=== PATIENT | female | born 1960 | race Caucasian/White ===

== ENCOUNTER 2018-05-13 10:15 | Emergency (ER) | payer SELFPAY ==
[2018-05-13 10:19] VITALS: BP 161/99; PULSE 108; RESP 15; TEMP 36.4; O2SAT 98; BMI 34.2
--- NOTE | 2018-05-13 20:20 | ED.NECK ---
HPI - Neck Pain/Injury General Chief Complaint: Neck Pain/Injury Stated Complaint: 'HURT NECK' Related Data Home Medications Medication Instructions Recorded Confirmed zh-bhm-ptich acid-lutein [Centrum 1 tab PO Q DAY #0 05/16/12 05/13/18 Silver] glucosamine sulfate-msm 1,500 mg PO BID #0 03/29/17 05/13/18 Glucose: Test Strips 0 str MISCELLANEOUS SEE 05/13/18 05/13/18 INSTRUCTIONS Syringes 1 syr MISCELLANEOUS Q DAY 05/13/18 05/13/18 aspirin 81 mg PO DAILY 05/13/18 05/13/18 insulin aspart U-100 [Novolog 1 dose SQ DIRECTED 05/13/18 05/13/18 U-100 Insulin aspart] metoclopramide HCl 10 mg PO QAM 05/13/18 05/13/18 ukpbmcef-tqj-VG-lycopen-lutein 1 tab PO DAILY 05/13/18 05/13/18 [Centrum Silver] penicillin V potassium 500 mg PO QID 05/13/18 05/13/18 Previous Rx's Medication Instructions Recorded quetiapine [Seroquel] 200 mg PO HS #30 tab 06/03/17 omeprazole 40 mg OR BID #180 cap 09/09/17 venlafaxine ER 75 mg 75 mg PO QDAY #90 cap 01/21/18 capsule,extended release 24 hr insulin glargine (U-100) 100 See Label Instructions SUBCUT QDAY 02/27/18 unit/mL subcutaneous solution #30 day ropinirole 2 mg tablet 2 mg PO HS #30 tab 03/31/18 lisinopril 10 mg tablet 10 mg PO QDAY #30 tab 04/08/18 trazodone 150 mg tablet 150 mg PO BEDTIME #90 tab 04/17/18 metformin 1,000 mg tablet 1,000 mg PO BIDCC #60 tab 04/21/18 Allergies Allergy/AdvReac Type Severity Reaction Status Date / Time No Known Drug Allergies Allergy Verified 05/13/18 10:19 PFSH Medical History Bipolar disorder (Chronic) Chronic headaches (Chronic) Depression (Chronic) Diabetes mellitus (Chronic 1991) GERD (gastroesophageal reflux disease) (Chronic) Hypertension (Chronic) Leg pain (Chronic) Menopause (Chronic) RLS (restless legs syndrome) (Chronic) Sliding hiatal hernia (Chronic) Surgical History Anesthesia (Resolved) History of right knee surgery (Resolved) History of tonsillectomy and adenoidectomy (Resolved) Family History Brother Age: 54 Type 1 diabetes Father Diabetes mellitus Heart disease Mother Age: 60 Diabetes mellitus Social History Smoking Status: Current every day smoker Exam Initial Vital Signs Initial Vital Signs: Vital Signs Temperature 97.6 F 05/13/18 10:19 Pulse Rate 108 H 05/13/18 10:19 Respiratory Rate 15 05/13/18 10:19 Blood Pressure 161/99 H 05/13/18 10:19 Pulse Oximetry 98 05/13/18 10:19 Discharge Plan Departure Patient Disposition: Left Without Being Seen Clinical Impression: Patient left without being seen Discharge Date/Time: 05/13/18 11:30 Interventions: ED Discharge Assessment Last Done: 05/13/18 11:41
== END 2018-05-13 11:30 | disposition left against medical advice (07) ==
PROVIDERS: Emergency Provider Emergency Medicine
DX: M54.2 Cervicalgia (principal)
CPT/HCPCS: 99281; 99282

== ENCOUNTER → 2018-07-11 15:26 | Outpatient (CLI) | payer OTHER, SELFPAY ==
[2018-07-11 16:26] LABS: Hemoglobin A1C% w Est Avg Glu 6.6 % (4.0-6.0)
[2018-07-11 16:44] LABS: Alanine Aminotransferase 23 IU/L (9-52); Albumin 4.2 g/dL (3.5-5.0); Albumin Globulin Ratio 1.8 (1.0-2.8); Alkaline Phosphatase 102 U/L (38-126); Aspartate Aminotransferase 18 IU/L (14-36); BUN Creatinine Ratio 17.1 (6-22); Bilirubin Total 0.6 mg/dL (0.2-1.3); Blood Urea Nitrogen 12 mg/dL (7-17); Calcium 9.4 mg/dL (8.4-10.2); Carbon Dioxide 25 mmol/L (22-32); Chloride 100 mmol/L (98-107); Cholesterol 172 mg/dL (140-199); Estimated Glomerular Filt Rate > 60.0 mL/min (>60); Globulin 2.3 g/dL (1.7-4.1); Glucose 338 mg/dL (80-110); HDL Cholesterol 86 mg/dL (40-60); HEMOLYSIS < 15 (0-50); LDL Cholesterol Calculated 67 mg/dL (<100); Potassium 5.1 mmol/L (3.4-5.1); Sodium 137 mmol/L (137-145); Total Protein 6.5 g/dL (6.3-8.2); Triglycerides 96 mg/dL (35-150)
[2018-07-11 16:58] LABS: Vitamin D 25 Hydroxy (D3) 36.2 ng/mL (30.0-100.0)
== END ==
PROVIDERS: PCP Student in an Organized Health Care Education/Training Program; Visit Provider Student in an Organized Health Care Education/Training Program
DX: E11.9 Type 2 diabetes mellitus without complications (principal); E78.5 Hyperlipidemia, unspecified; E78.2 Mixed hyperlipidemia; I10 Essential (primary) hypertension; Z79.899 Other long term (current) drug therapy; E55.9 Vitamin D deficiency, unspecified
CPT/HCPCS: 36415; 80053; 80061; 82306; 83036

== ENCOUNTER → 2019-06-10 09:42 | Outpatient (CLI) | payer MEDICARE, MEDICAID, OTHER, SELFPAY ==
[2019-06-10 10:49] LABS: Alanine Aminotransferase 18 IU/L (9-52); Albumin 4.2 g/dL (3.5-5.0); Albumin Globulin Ratio 1.8 (1.0-2.8); Alkaline Phosphatase 104 U/L (38-126); Aspartate Aminotransferase 21 IU/L (14-36); Bilirubin Total 0.9 mg/dL (0.2-1.3); Bilirubin Unconjugated 0.7 mg/dL (0.0-1.1); Cholesterol 167 mg/dL (140-199); Globulin 2.3 g/dL (1.7-4.1); HDL Cholesterol 87 mg/dL (40-60); HEMOLYSIS < 15 (0-50); LDL Cholesterol Calculated 60 mg/dL (<100); Total Protein 6.5 g/dL (6.3-8.2); Triglycerides 99 mg/dL (35-150)
[2019-06-10 10:57] LABS: Creatinine Urine Random 52.8 mg/dL
[2019-06-10 11:06] LABS: Microalbumi Creatinin Ratio Ur 11.3 ug/mg CR (<30); Microalbumin Urine Random < 0.6 mg/dL (0-1.6)
[2019-06-11 15:23] LABS: Hemoglobin A1C% w Est Avg Glu 7.4 % (4.0-6.0)
== END ==
PROVIDERS: PCP Student in an Organized Health Care Education/Training Program; Visit Provider Student in an Organized Health Care Education/Training Program
DX: E11.9 Type 2 diabetes mellitus without complications (principal); E78.5 Hyperlipidemia, unspecified
CPT/HCPCS: 36415; 80061; 80076; 82043; 82570; 83036

== ENCOUNTER → 2019-10-05 11:51 | Outpatient (CLI) | payer MEDICARE, OTHER, SELFPAY ==
[2019-10-05 12:52] LABS: Hemoglobin A1C% w Est Avg Glu 7.9 % (4.0-6.0)
[2019-10-05 13:26] LABS: BUN Creatinine Ratio 14.3 (6-22); Blood Urea Nitrogen 10 mg/dL (7-17); Calcium 9.3 mg/dL (8.4-10.2); Carbon Dioxide 26 mmol/L (22-32); Chloride 98 mmol/L (98-107); Estimated Glomerular Filt Rate > 60.0 mL/min (>60); Glucose 343 mg/dL (80-110); HEMOLYSIS < 15 (0-50); Sodium 133 mmol/L (137-145)
[2019-10-05 13:29] LABS: Potassium 5.5 mmol/L (3.4-5.1)
== END ==
PROVIDERS: PCP Student in an Organized Health Care Education/Training Program; Referring Provider Student in an Organized Health Care Education/Training Program; Visit Provider Student in an Organized Health Care Education/Training Program
DX: E11.9 Type 2 diabetes mellitus without complications (principal); E66.9 Obesity, unspecified
CPT/HCPCS: 36415; 80048; 83036